=== PATIENT | female | born 1990 | race Caucasian/White ===

== ENCOUNTER 2018-03-11 02:46 | Observation (INO) ==
[2018-03-11 03:44] LABS: Basophils # 0.1 10*3/uL (0.0-0.2); Basophils % 0.6 % (0.0-0.8); Eosinophils # 0.2 10*3/uL (0.0-0.87); Eosinophils % 1.5 % (0.00-10.9); Hematocrit 48.8 VOL% (35.7-47.0); Hemoglobin 15.4 GM/DL (12.0-16.0); Immature Granulocytes % 0.3 %; Immature Granulocytes Absolute 0.03 #; Lymphocytes % 40.8 % (21.3-54.2); Mean Corpuscular HGB Conc 31.6 GM/DL (32-36); Mean Corpuscular Hemoglobin 28 PG (27-34); Mean Corpuscular Volume 88.2 FL (87-102); Mean Platelet Volume 9.7 FL (9.6-12.0); Monocytes # 0.7 10*3/uL (0.11-0.8); Monocytes % 7.2 % (1.7-12.7); Neutrophils # 4.8 10*3/uL (1.4-7.4); Neutrophils % 49.6 % (38.7-73.9); Platelet Count 379 T/CUMM (130-400); Red Blood Count 5.53 MC/CUMM (3.8-5.5); White Blood Count 9.7 T/CUMM (4-12)
[2018-03-11 04:02] LABS: Alanine Aminotransferase 26 U/L (13-56); Albumin 3.2 G/DL (3.4-5.0); Alkaline Phosphatase 64 U/L (45-117); Amylase 21 U/L (25-115); Aspartate Amino Transferase 15 U/L (0-37); Blood Urea Nitrogen 15 MG/DL (7-18); Calcium 8.8 MG/DL (8.5-10.1); Glucose 105 MG/DL (74-106); Osmolality,Calculated 277.5 MOS/KG (273-304); Potassium 4.1 MMOL/L (3.5-5.1); Sodium 139 MMOL/L (136-145); Total Protein 7.7 G/DL (6.4-8.3); Troponin I Only < 0.015 NG/ML (0.00-0.045)
[2018-03-11 05:34] LABS: Apearance,Urine CLEAR (Clear); Bacteria,Urine Occasional /HPF (Few); Bilirubin,Urine Negative (Negative); Blood, Urine Negative (Negative); Glucose,Urine (UA) Negative (Negative); Hyaline Casts,Urine 2 /LPF (0-3); Ketones,Urine Negative (Negative); Mucus,Urine Occasional /LPF (Occasional); Nitrite,Urine Negative (Negative); Protein,Urine 30 MG/DL; RBC,Urine <1 /HPF (0-4); Squamous Epithelial Cell,Urine Occasional /HPF (0-10); Urine Color Yellow (Yellow); Urine Specific Gravity 1.017 (1.001-1.035); Urine Urobilinogen < 2.0 EU/DL (0.2-1.0); WBC,Urine <1 /HPF (0-6)
[2018-03-11] MEDS ORDERED: MEPERIDINE 25 MG/1 ML VIAL IV STA (07:31)
[2018-03-11] MEDS ORDERED: ONDANSETRON 4 MG/2 ML VIAL IV STA (07:31)
[2018-03-11] MEDS ORDERED: cefOXitin 2,000 MG in SYRINGE 1 EACH IV STA (08:02)
[2018-03-11] MEDS ORDERED: PANTOPRAZOLE 40 MG VIAL IV ONE (08:19)
[2018-03-11] MEDS ORDERED: LIDOCAINE 1%/EPI INJ 20 ML VIAL ONE (08:29)
[2018-03-11] MEDS ORDERED: TISSUE ADHESIVE 1 EACH APPLICATOR TOP ONE (08:29)
[2018-03-11] MEDS ORDERED: ENOXAPARIN 40 MG/0.4 ML SYRINGE SUBCUT SCH (08:30)
[2018-03-11] MEDS ORDERED: ONDANSETRON 4 MG/2 ML VIAL IV PRN (09:16)
[2018-03-11] MEDS ORDERED: SUGAMMADEX 200 MG/2 ML VIAL IV ONE (09:44)
[2018-03-11] MEDS ORDERED: fentaNYL 100 MCG/2 ML VIAL ONE ×2 (10:26)
[2018-03-11] MEDS ORDERED: DESFLURANE 1 UNIT/15 MINUTE INH ONE (10:26)
[2018-03-11] MEDS ORDERED: PROPOFOL 200 MG/20 ML VIAL IV ONE (10:26)
[2018-03-11] MEDS ORDERED: MIDAZOLAM 2 MG/2 ML VIAL ONE (10:26)
[2018-03-11] MEDS ORDERED: ACETAMINOPHEN 1,000 MG/100 ML VIAL IV ONE (10:27)
[2018-03-11] MEDS ORDERED: SCOPOLAMINE 1.5 MG PATCH TRANSDERM ONE (10:27)
[2018-03-11] MEDS ORDERED: ROCURONIUM 100 MG/10 ML VIAL IV ONE (10:27)
[2018-03-11] MEDS ORDERED: LACTATED RINGERS 1,000 ML IV ONE (10:27)
[2018-03-11] MEDS ORDERED: ONDANSETRON 4 MG/2 ML VIAL ONE (10:27)
[2018-03-11] MEDS ORDERED: DEXAMETHASONE 10 MG/1 ML VIAL ONE (10:27)
[2018-03-11] MEDS ORDERED: LABETALOL 100 MG/20 ML VIAL IV ONE (10:27)
[2018-03-11] MEDS: MEPERIDINE 25 MG/1 ML VIAL IV PRN ×2 (10:30→11:41)
[2018-03-11] MEDS ORDERED: MEPERIDINE 25 MG/1 ML VIAL ONE (10:31)
[2018-03-11] MEDS: MORPHINE 10 MG/1 ML VIAL IV PRN ×2 (10:40→10:45)
[2018-03-11] MEDS ORDERED: MORPHINE 10 MG/1 ML VIAL ONE (10:41)
[2018-03-11 16:22] VITALS: BP 143/77
== END 2018-03-11 18:25 | disposition home or self-care (01) ==
LOC: N.EDINP 02:46 → N.ED 02:46 → N.3E 08:50
PROVIDERS: ADMIT Surgery; ATTEND Surgery
PROC: LAPCHOL (2018-03-11 08:50)